=== PATIENT | male | born 1970 | race Caucasian/White ===

== ENCOUNTER 2016-10-01 02:54 | Emergency (ER) | payer BC, OTHER ==
[~2016-10-01] VITALS: Ht 180.3 cm; Wt 70.0 kg
[~2016-10-01 02:54] MED LIST: ALBU0.08 NEB; ALBU2.5I INH; AZIT250T3 PO; FLOV110A INH; FLUT50SP EACH NARE; IPRASOL INH; MEDR4PAK PO; NEBUKIT4; PRED20 PO; VENTAER INH; VIAG50TA PO
[2016-10-01 02:59] VITALS: BP 138/83; PULSE 114; RESP 22; TEMP 98; O2SAT 92
[2016-10-01 03:01] VITALS: BP 136/83; PULSE 114; RESP 24; TEMP 97.6; O2SAT 91
[2016-10-01 03:12] VITALS: BP 137/79; PULSE 104; RESP 24; O2SAT 94
--- NOTE | 2016-10-01 03:25 | PD ---
HPI Chief Complaint: Respiratory Symptoms Time Seen by Provider: 03:24 Travel History International Travel<30 days: No Contact w/Intl Traveler<30days: No Traveled to known affect area: No History of Present Illness HPI 46 years old male came to the emergency room with history of shortness of breath and asthma exacerbation. Patient says that he has history of asthma and has been using his inhaler but for past 2 weeks his breathing is progressively worsening. Today he was especially short of breath which got exacerbated upon walking few steps. He has been taking his inhalers but is not getting better. He got really anxious and decided to come to the emergency room. His sister is here with him. No history of chest pain. 2 weeks ago he was diagnosed with bronchitis and he was given a Z-Orestes and a course of prednisone. Patient says his condition has not significantly improved. He seems anxious. [facility] Past Medical History Narrative Medical List of his past medical, surgical, social and family history reviewed from the nursing note. Asthma: Yes Tetanus Vaccination: Unknown Influenza Vaccination: No Social History Alcohol Use: Yes (daily ) Tobacco Use: No Substance Use: No Allergies-Medications (Allergen,Severity, Reaction): Coded Allergies: No Known Allergies (Verified , 10/01/16) Comments No known drug allergies. Reported Meds & Prescriptions Reported Meds & Active Scripts Active Prednisone 20 Mg Tab 20 Mg PO BID 5 Days Duoneb (Ipratropium-Albuterol Neb) 0.5-2.5 Mg/3 Ml Neb 1 Nebule INH Q4HR NEB Azithromycin 250 Mg Tab 250 Mg PO DIRECTED Take 2 tabs (500 mg) on day 1 then 1 tab daily x 4 days. Prednisone 20 Mg Tab 40 Mg PO DAILY Take 40 mg (2 tablets) daily for 5 days Medrol Dosepak (Methylprednisolone) 4 Mg Dspk 4 Mg PO DIRECTED Per Pharmacist direction Viagra (Sildenafil Citrate) 50 Mg Tab 50 Mg PO DAILY PRN Albuterol Neb (Albuterol Sulfate) 2.5 Mg/3 Ml Neb 2.5 Mg NEB Q4HR NEB While awake Ventolin Hfa 18 GM Inh (Albuterol Sulfate) 90 Mcg/Act Aer 2 Puff INH Q6H PRN Narrative Medication List of his home medications reviewed from the nursing note. Review of Systems Except as stated in HPI: all other systems reviewed are Neg Physical Exam Narrative GENERAL: Awake, alert, anxious, mild distress SKIN: Focused skin assessment warm/dry. HEAD: Atraumatic. Normocephalic. EYES: Pupils equal and round. No scleral icterus. No injection or drainage. ENT: No nasal bleeding or discharge. Mucous membranes pink and moist. NECK: Trachea midline. No JVD. CARDIOVASCULAR: Regular rate and rhythm. No murmur appreciated. RESPIRATORY: No accessory muscle use. Decreased air entry bilaterally with end expiratory wheeze GASTROINTESTINAL: Abdomen soft, non-tender, nondistended. Hepatic and splenic margins not palpable. MUSCULOSKELETAL: No obvious deformities. No clubbing. No cyanosis. No edema. NEUROLOGICAL: Awake and alert. No obvious cranial nerve deficits. Motor grossly within normal limits. Normal speech. PSYCHIATRIC: Appropriate mood and affect; insight and judgment normal. Data Data Last Documented VS Orders Complete Blood Count With Diff (10/01/16 03:29) Basic Metabolic Panel (Bmp) (10/01/16 03:29) B-Type Natriuretic Peptide (10/01/16 03:29) D-Dimer (10/01/16 03:29) Troponin I (10/01/16 03:29) Iv Access Insert/Monitor (10/01/16 03:29) Electrocardiogram (10/01/16 03:29) Ecg Monitoring (10/01/16 03:29) Oximetry (10/01/16 03:29) Oxygen Administration (10/01/16 03:29) Chest, Single Ap (10/01/16 03:29) Sodium Chloride 0.9% Flush (Ns Flush) (10/01/16 03:30) Methylprednisolone So Succ Inj (Solumedr (10/01/16 03:30) Albuterol-Ipratropium Neb (Duoneb Neb) (10/01/16 03:30) Albuterol Neb (Albuterol Neb) (10/01/16 05:30) Labs MDM Medical Decision Making Medical Screen Exam Complete: Yes Emergency Medical Condition: Yes Medical Record Reviewed: Yes Interpretation(s) Twelve-lead EKG was reviewed by me. Normal sinus rhythm, normal axis, nonspecific ST-T wave changes, tachycardia. Heart rate of 102 bpm. Differential Diagnosis Acute asthma exacerbation, congestive heart failure, PE Narrative Course 5:11 AM patient has low risk for PE and hence a d-dimer was ordered along with other lab tests. All the blood test results are within normal limit. Chest x- rays within normal limit. He was given 3 duo nebs [id number] along with IV Solu-Medrol. I will reassess him and if he sounds better he will be discharged home on by mouth prednisone. Procedures EKG Prior to Arrival: No Diagnosis Primary Impression: Respiratory distress Additional Impression: Acute asthma exacerbation Qualified Code: J45.41 - Moderate persistent asthma with acute exacerbation Referrals: Primary Care Physician 2 days Additional Instructions: Please return to the ER if the condition worsens or any other new concerns. Otherwise use her albuterol inhaler 2 puffs every 4-6 hours till symptoms subside. Take the medication as per the prescription direction. Med/Other Pt SpecificInfo: Prescription(s) given Scripts Prednisone 20 Mg Tab20 Mg PO BID 5 Days Ref 0 Prov:Milton Rivera MD 10/01/16 Disposition: 01 DISCHARGE HOME Condition: Stable Milton Rivera MD October 01, 2016 03:25 Lymphocytes (%) (Auto) 39.6 % Monocytes (%) (Auto) 8.6 % Eosinophils (%) (Auto) 15.1 % Basophils (%) (Auto) 0.4 % Neutrophils # (Auto) 3.4 TH/MM3 Lymphocytes # (Auto) 3.7 TH/MM3 Monocytes # (Auto) 0.8 TH/MM3 Eosinophils # (Auto) 1.4 TH/MM3 Basophils # (Auto) 0.0 TH/MM3 CBC Comment DIFF FINAL Differential Comment D-Dimer Quantitative (PE/DVT) 0.33 MG/L FEU Sodium Level 141 MEQ/L Potassium Level 3.4 MEQ/L Chloride Level 104 MEQ/L Carbon Dioxide Level 26.9 MEQ/L Anion Gap 10 MEQ/L Blood Urea Nitrogen 8 MG/DL Creatinine 1.07 MG/DL Estimat Glomerular Filtration 74 ML/MIN Rate Random Glucose 125 MG/DL Calcium Level 8.7 MG/DL Troponin I LESS THAN 0.02 NG/ML B-Type Natriuretic Peptide LESS THAN 2 PG/ML MDM Medical Decision Making Medical Screen Exam Complete: Yes Emergency Medical Condition: Yes Medical Record Reviewed: Yes Interpretation(s) Twelve-lead EKG was reviewed by me. Normal sinus rhythm, normal axis, nonspecific ST-T wave changes, tachycardia. Heart rate of 102 bpm. Differential Diagnosis Acute asthma exacerbation, congestive heart failure, PE Narrative Course 5:11 AM patient has low risk for PE and hence a d-dimer was ordered along with other lab tests. All the blood test results are within normal limit. Chest x- rays within normal limit. He was given 3 duo nebs [id number] along with IV Solu-Medrol. I will reassess him and if he sounds better he will be discharged home on by mouth prednisone. Procedures EKG Prior to Arrival: No Diagnosis Primary Impression: Respiratory distress Additional Impression: Acute asthma exacerbation Qualified Code: J45.41 - Moderate persistent asthma with acute exacerbation Referrals: Primary Care Physician 2 days Additional Instructions: Please return to the ER if the condition worsens or any other new concerns. Otherwise use her albuterol inhaler 2 puffs every 4-6 hours till symptoms subside. Take the medication as per the prescription direction. Med/Other Pt SpecificInfo: Prescription(s) given Scripts Prednisone 20 Mg Tab20 Mg PO BID 5 Days Ref 0 Prov:Milton Rivera MD 10/01/16 Disposition: 01 DISCHARGE HOME Condition: Stable Milton Rivera MD October 01, 2016 03:25
[2016-10-01] MEDS ORDERED: methylPREDNISolone SOD SUCC 125 MG/2 ML VIAL IVP ONE (03:30)
[2016-10-01] MEDS ORDERED: SODIUM CHLORIDE 0.9% FLUSH 10 ML FLUSH IVF PRN (03:30)
[2016-10-01 03:31] VITALS: O2SAT 95
[2016-10-01] MEDS: RESP: ALBUTEROL 2.5 MG/IPRATROPIUM 0.5 MG NEB (SCH) INH ×2 (03:34→03:35)
[2016-10-01 03:42] VITALS: O2SAT 98
[2016-10-01 03:53] LABS: AUTOMATED NEUTROPHIL # 3.4 TH/MM3 (1.8-7.7); BASOPHIL % 0.4 % (0.0-2.0); EOSINOPHIL # 1.4 TH/MM3 (0-0.4); EOSINOPHIL % 15.1 % (0.0-4.0); HEMATOCRIT 42.3 % (39.0-51.0); HEMO FLAGS DIFF FINAL; LYMPH % 39.6 % (9.0-44.0); LYMPHOCYTE # 3.7 TH/MM3 (1.0-4.8); MEAN CELL VOLUME 99.2 FL (80.0-100.0); MEAN CORPUSCULAR HEMOGLOBIN 34.2 PG (27.0-34.0); MEAN CORPUSCULAR HGB CONC 34.5 % (32.0-36.0); MONO % 8.6 % (0.0-8.0); NEUT % 36.3 % (16.0-70.0); PLATELET COUNT 172 TH/MM3 (150-450); RED BLOOD COUNT 4.26 MIL/MM3 (4.50-5.90); RED CELL DISTRIBUTION WIDTH 13.5 % (11.6-17.2); WHITE BLOOD COUNT 9.2 TH/MM3 (4.0-11.0)
--- NOTE | 2016-10-01 04:05 | RADRPT ---
EXAM DATE/TIME: 10/01/2016 03:43 [place] COMPARISON: No previous studies available for comparison. INDICATIONS : Shortness of breath. MEDICAL HISTORY : Asthma SURGICAL HISTORY : None. ENCOUNTER: Initial ACUITY: 1 day PAIN SCORE: 0/10 LOCATION: Bilateral chest FINDINGS: A single view of the chest demonstrates the lungs to be symmetrically aerated without evidence of mas s, infiltrate or effusion. The cardiomediastinal contours are unremarkable. Osseous structures are intact. CONCLUSION: No acute disease. James Maxwell MD on October 01, 2016 at 4:03 Board Certified Radiologist. This report was verified electronically.
[2016-10-01 04:10] LABS: ANION GAP 10 MEQ/L (5-15); BICARBONATE 26.9 MEQ/L (21.0-32.0); BLOOD UREA NITROGEN 8 MG/DL (7-18); CHLORIDE 104 MEQ/L (98-107); GLOMERULAR FILTRATION RATE 74 ML/MIN (>89); POTASSIUM 3.4 MEQ/L (3.5-5.1); SODIUM (NA) 141 MEQ/L (136-145)
[2016-10-01] MEDS ORDERED: PRED20 PO (05:13)
[2016-10-01] MEDS: RESP: ALBUTEROL 2.5 MG/3 ML NEB (SCH) INH (05:25)
--- NOTE | 2016-10-01 14:56 | EKG ---
Date Performed: 10/01/2016 Time Performed: 03:14:20 PTAGE: 46 years EKG: SINUS TACHYCARDIA ABNORMAL RHYTHM ECG NO PREVIOUS TRACING DOCTOR: Manny Sosa Interpretating Date/Time 10/01/2016 14:55:14
== END 2016-10-01 05:53 | disposition home or self-care (01) ==
LOC: NEPE 02:54
DX: J45.41 Moderate persistent asthma with (acute) exacerbation (principal)
CPT/HCPCS: 71010; 80048; 83880; 84484; 85025; 85379; 93005; 94640; 94664; 96374; 99285; J2930; J7613